=== PATIENT | female | born 1985 | race Caucasian/White ===

== ENCOUNTER 2018-08-27 14:30 | Outpatient (CLI) | payer OTHER ==
--- NOTE | 2018-08-27 22:04 | MRI Report ---
Reason: PAIN UNSPECIFIED KNEE Procedure Date: 08/27/2018 Accession Number: [id number] / [id number] Procedure: MRI - Knee LT W/O CPT Code: FULL RESULT: EXAM: LEFT KNEE MRI WITHOUT CONTRAST EXAM DATE: 08/27/2018 03:53 PM. CLINICAL HISTORY: Left knee pain after fall. COMPARISON: None. TECHNIQUE: Multiplanar, multisequence T1-weighted and fluid-sensitive sequences of the knee without contrast. Other: None. FINDINGS: Bones and articular cartilage: Mildly depressed fracture at the anterior aspect of the lateral tibial plateau. The fracture is depressed by approximately 4 mm. Marrow edema at the site of the fracture. No bone lesions. No subluxations. Articular cartilage is within normal limits. Medial Meniscus: The medial meniscus is intact. Lateral Meniscus: The lateral meniscus is intact. Cruciate Ligaments: The anterior and posterior cruciate ligaments are intact. Collateral Ligaments: The medial collateral and lateral collateral ligamentous structures are intact. Tendons: The quadriceps, patellar, semimembranosus, and popliteus tendons are unremarkable. Musculature: No edema or fatty atrophy. Other: No effusion. No popliteal cyst. No loose bodies. The medial and lateral retinacula are intact. The subcutaneous tissues and fat pads are unremarkable. IMPRESSION: 1. Mildly depressed fracture at the anterior aspect of the lateral tibial plateau. 2. No ligament or meniscal tear. [facility]
== END 2018-08-27 14:31 | disposition home or self-care (01) ==
LOC: EDSEX → DI 14:30
PROVIDERS: ATTEND Family Medicine
DX: S82.142A Displaced bicondylar fracture of left tibia, initial encounter for closed fracture (principal)

== ENCOUNTER 2020-11-09 12:57 | Outpatient (CLI) | payer OTHER ==
--- NOTE | 2020-11-09 12:11 | XRAY Report ---
PROCEDURE: Ankle 3 View LT INDICATIONS: L ANKLE PX TECHNIQUE: 3 views of the ankle were acquired. COMPARISON: None FINDINGS: Bones: Postsurgical changes noted in the posterior-superior margin of the calcaneus. 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 No fractures or dislocations. Ankle mortise is normally aligned. No suspicious bony lesions. Soft tissues: No tibiotalar joint effusion. Achilles tendon appears normal. IMPRESSION: 1. No fracture. No acute osseous lesion. If there persistent symptoms or continued clinical concern f or pathology, then repeat plain film radiographs (7-10 days) or advanced imaging (CT, MR, bone scan) should be considered for further evaluation. 2. 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 Reviewed by: Regina Wheatley MD, PhD on 11/09/2020 12:09 PM PDT Approved by: Regina Wheatley MD, PhD on 11/09/2020 12:09 PM PDT Station ID: [id number]
== END 2020-11-09 23:59 | disposition home or self-care (01) ==
LOC: DI.N 12:57
PROVIDERS: ATTEND Physician Assistant
DX: M19.072 Primary osteoarthritis, left ankle and foot (principal)